=== PATIENT | male | born 1970 | race American Indian/Alaskan Native ===

== ENCOUNTER 2019-02-18 18:01 | Emergency (ER) | payer BC ==
[2019-02-18] MEDS ORDERED: ASPIRIN PO ONE (18:21)
--- NOTE | 2019-02-18 18:22 | Event Note ---
ED Screening Note Date of service: 02/18/19 Time: 18:19 ED Screening Note: This is a 48 y.o. M. that presents to the ER with left sided chest pain x 1 week. Denies radiating pain, palpitations, sob, n/v, or weakness This initial assessment/diagnostic orders/clinical plan/treatment(s) is/are s ubject to change based on patients health status, clinical progression and re- assessment by fellow clinical providers in the ED. Further treatment and workup at subsequent clinical providers discretion. Patient/guardian urged not to elope from the ED as their condition may be serious if not clinically assessed and managed. Initial orders include: Labs, EKG, & CXR
--- NOTE | 2019-02-18 18:49 | XRay Report ---
CHEST PA AND LATERAL VIEWS INDICATION: Chest Pain. COMPARISON: None. FINDINGS: Support devices: None. Heart: Within normal limits. Lungs/Pleura: No acute pulmonary or pleural findings. IMPRESSION: 1. No significant abnormality. Signer Name: Odell Avitia MD Signed: 02/18/2019 6:45 PM Workstation Name: [id number]
[2019-02-18 19:58] LABS: Basophils % (Auto) 0.6 % (0.0-1.8); Eosinophils # (Auto) 0.1 K/mm3 (0.0-0.4); Eosinophils % (Auto) 2.4 % (0.0-4.3); Hematocrit 46.7 % (35.5-45.6); Hemoglobin 15.9 gm/dl (11.8-15.2); Lymphocytes # (Auto) 2.4 K/mm3 (1.2-5.4); Lymphocytes % (Auto) 38.8 % (13.4-35.0); Mean Corpuscular HGB Conc 34 % (32-34); Mean Corpuscular Volume 94 fl (84-94); Monocytes # (Auto) 0.4 K/mm3 (0.0-0.8); Monocytes % (Auto) 6.8 % (0.0-7.3); Platelet Count 295 K/mm3 (140-440); Red Blood Count 4.98 M/mm3 (3.65-5.03); Red Cell Distribution Width 13.5 % (13.2-15.2)
[2019-02-18 20:16] LABS: BUN/Creatinine Ratio 18; Blood Urea Nitrogen 18 mg/dL (9-20); Calcium 9.3 mg/dL (8.4-10.2); Hemolysis Index 17
[2019-02-18 21:39] VITALS: BP 127/81
[2019-02-18] MEDS ORDERED: PEPCID PO ONE (21:43)
[2019-02-18] MEDS ORDERED: CARAFATE PO ONE (21:43)
--- NOTE | 2019-02-18 21:44 | Emergency Department Report ---
ED Chest Pain HPI - General Chief Complaint: Chest Pain Stated Complaint: CHEST PAIN Time Seen by Provider: 02/18/19 18:19 Source: patient, RN notes reviewed Mode of arrival: Ambulatory Limitations: No Limitations - History of Present Illness Initial Comments: This is a 48-year-old gentleman. This patient is not known to this provider previously. He does not have a local primary care doctor. He reports a history of left nephrectomy when he was a child. He presents to the ER with a complaint of nontraumatic chest pain. The chest pain is left-sided. It does not radiate anywhere. It is intermittent. It is present for over a week. There is no radiation to the back, arms or neck. There is no vomiting or diaphoresis. It is no recent aspirin consumption. Patient works as a dedicated local truck driver. He endorses multiple recent long road trips. There is no leg pain or leg swelling. He admits to recreational meth use a few days ago. He denies recent drug ingestion. Is no family history of heart disease that he is aware of. There is no history of DVT or pulmonary embolism that he is aware of. Apparently, patient came in today because he had a break in travel. MD Complaint: chest pain -: Gradual Onset: during rest Pain Location: left chest Pain Radiation: none Severity: mild Quality: aching Consistency: intermittent Improves With: nothing Worsens With: nothing Context: recent travel Aspirin use within the Past 7 Days: (0) No - Related Data Allergies Allergy/AdvReac Type Severity Reaction Status Date / Time No Known Allergies Allergy Unverified 02/18/19 18:06 Heart Score - HEART Score History: Slightly suspicious EKG: Non-specific Age: 45-65 Risk factors: 1-2 risk factors Troponin: < normal limit HEART Score: 3 - Critical Actions Critical Actions: 0-3 pts:0.9-1.7%risk of adverse cardiac event.Candidate for discharge ED Review of Systems ROS: Stated complaint: CHEST PAIN Other details as noted in HPI Constitutional: denies: fever Eyes: denies: eye discharge ENT: denies: congestion Respiratory: denies: cough, shortness of breath, SOB with exertion, SOB at rest, wheezing Cardiovascular: chest pain Gastrointestinal: denies: vomiting Musculoskeletal: denies: back pain Skin: denies: lesions Neurological: denies: weakness Psychiatric: denies: anxiety Hematological/Lymphatic: denies: easy bleeding ED Past Medical Hx - Past Medical History Previous Medical History?: Yes Hx Diabetes: Yes Additional medical history: One kidney - Surgical History Past Surgical History?: Yes Additional Surgical History: Left nephrectomy - Social History Smoking Status: Current Every Day Smoker Substance Use Type: Marijuana, Methamphetamines ED Physical Exam - General Limitations: No Limitations General appearance: alert, in no apparent distress - Head Head exam: Present: atraumatic, normocephalic - Eye Eye exam: Present: normal appearance, EOMI. Absent: nystagmus - ENT ENT exam: Present: normal exam, normal orophraynx, mucous membranes moist, normal external ear exam - Neck Neck exam: Present: normal inspection, full ROM. Absent: tenderness, menin gismus - Respiratory Respiratory exam: Present: normal lung sounds bilaterally. Absent: respiratory distress - Cardiovascular Cardiovascular Exam: Present: regular rate, normal rhythm, normal heart sounds. Absent: bradycardia, tachycardia, irregular rhythm, systolic murmur, diastolic murmur, rubs, gallop - GI/Abdominal GI/Abdominal exam: Present: soft. Absent: distended, tenderness, guarding, rebound, rigid, pulsatile mass - Rectal Rectal exam: Present: deferred - Extremities Exam Extremities exam: Present: normal inspection, full ROM, other (2+ pulses noted in the bilateral upper, lower extremities. There is no long bone tenderness. Musculoskeletal compartments are soft. The pelvis is stable.). Absent: pedal edema, joint swelling, calf tenderness - Back Exam Back exam: Present: normal inspection, full ROM. Absent: tenderness, CVA tenderness (R), CVA tenderness (L), paraspinal tenderness, vertebral tenderness - Neurological Exam Neurological exam: Present: alert, oriented X3, normal gait, other (there is no facial droop. The tongue is midline. Extraocular movements are intact bilaterally. Patient speaking in full complete sentences. Shoulder shrug is intact bilaterally. Hearing is grossly intact bilaterally. Visual acuity intact to finger counting and color perception at a close distance. 5/5 strength 4 extremities. Sensation intact to light touch in 4 extremities.). Absent: motor sensory deficit - Psychiatric Psychiatric exam: Present: normal affect, normal mood - Skin Skin exam: Present: warm, dry, intact, normal color. Absent: rash ED Course Vital Signs 02/18/19 02/18/19 02/18/19 18:06 20:54 21:01 Temperature 98.3 F Pulse Rate 85 70 81 Respiratory 16 15 12 Rate Blood Pressure 140/96 O2 Sat by Pulse 100 98 96 Oximetry 02/18/19 02/18/19 21:15 21:30 Temperature Pulse Rate 75 81 Respiratory 16 13 Rate Blood Pressure 134/86 127/81 O2 Sat by Pulse 97 97 Oximetry OLIVERIO score - Oliverio Score Age > 65: (0) No Aspirin use within the Past 7 Days: (0) No 3 or more CAD Risk Factors: (0) No 2 or more Angina events in past 24 hrs: (0) No Known CAD with more than 50% Stenosis: (0) No Elevated Cardiac Markers: (0) No ST Deviation Greater than 0.5mm: (0) No OLIVERIO Score: 0 ED Medical Decision Making - Lab Data Result diagrams: 02/18/19 19:06 02/18/19 19:06 Vital Signs 02/18/19 02/18/19 02/18/19 18:06 20:54 21:01 Temperature 98.3 F Pulse Rate 85 70 81 Respiratory 16 15 12 Rate Blood Pressure 140/96 O2 Sat by Pulse 100 98 96 Oximetry 02/18/19 02/18/19 21:15 21:30 Temperature Pulse Rate 75 81 Respiratory 16 13 Rate Blood Pressure 134/86 127/81 O2 Sat by Pulse 97 97 Oximetry Lab Results 02/18/19 02/18/19 02/18/19 Range/Units 19:06 19:06 21:43 WBC 6.3 (4.5-11.0) K/mm3 RBC 4.98 (3.65-5.03) M/mm3 Hgb 15.9 H (11.8-15.2) gm/dl Hct 46.7 H (35.5-45.6) % MCV 94 (84-94) fl MCH 32 (28-32) pg MCHC 34 (32-34) % RDW 13.5 (13.2-15.2) % Plt Count 295 (140-440) K/mm3 Lymph % (Auto) 38.8 H (13.4-35.0) % [place] % (Auto) 6.8 (0.0-7.3) % Eos % (Auto) 2.4 (0.0-4.3) % Baso % (Auto) 0.6 (0.0-1.8) % Lymph # 2.4 (1.2-5.4) K/mm3 [place] # 0.4 (0.0-0.8) K/mm3 Eos # 0.1 (0.0-0.4) K/mm3 Baso # 0.0 (0.0-0.1) K/mm3 Seg Neutrophils % 51.4 (40.0-70.0) % Seg Neutrophils # 3.2 (1.8-7.7) K/mm3 Sodium 138 (137-145) mmol/L Potassium 4.1 (3.6-5.0) mmol/L Chloride 103.0 (98-107) mmol/L Carbon Dioxide 18 L (22-30) mmol/L Anion Gap 21 mmol/L BUN 18 (9-20) mg/dL Creatinine 1.0 (0.8-1.5) mg/dL Estimated GFR > 60 ml/min BUN/Creatinine Ratio 18 % Glucose 114 H (75-100) mg/dL Calcium 9.3 (8.4-10.2) mg/dL Magnesium 2.20 (1.7-2.3) mg/dL Total Creatine Kinase 113 (55-170) units/L Troponin T < 0.010 (0.00-0.029) ng/mL 02/18/19 Range/Units Unknown WBC (4.5-11.0) K/mm3 RBC (3.65-5.03) M/mm3 Hgb (11.8-15.2) gm/dl Hct (35.5-45.6) % MCV (84-94) fl MCH (28-32) pg MCHC (32-34) % RDW (13.2-15.2) % Plt Count (140-440) K/mm3 Lymph % (Auto) (13.4-35.0) % [place] % (Auto) (0.0-7.3) % Eos % (Auto) (0.0-4.3) % Baso % (Auto) (0.0-1.8) % Lymph # (1.2-5.4) K/mm3 [place] # (0.0-0.8) K/mm3 Eos # (0.0-0.4) K/mm3 Baso # (0.0-0.1) K/mm3 Seg Neutrophils % (40.0-70.0) % Seg Neutrophils # (1.8-7.7) K/mm3 Sodium (137-145) mmol/L Potassium (3.6-5.0) mmol/L Chloride (98-107) mmol/L Carbon Dioxide (22-30) mmol/L Anion Gap mmol/L BUN (9-20) mg/dL Creatinine (0.8-1.5) mg/dL Estimated GFR ml/min BUN/Creatinine Ratio % Glucose (75-100) mg/dL Calcium (8.4-10.2) mg/dL Magnesium (1.7-2.3) mg/dL Total Creatine Kinase (55-170) units/L Troponin T < 0.010 (0.00-0.029) ng/mL - EKG Data -: EKG Interpreted by Ok EKG shows normal: sinus rhythm Rate: normal - EKG Data When compared to previous EKG there are: previous EKG unavailable 02/18/19 23:08 There is no prior EKG available for comparison. This is a sinus rhythm, 75 bpm, normal axis, QTC is prolonged, there is poor R-wave progression, there is borde rline high left ventricular voltage, EKG is abnormal, the EKG is not consistent with ST elevation myocardial infarction. - Radiology Data Radiology results: report reviewed, image reviewed X-ray of the chest is negative for acute disease - Medical Decision Making Differential diagnosis, including not limited to: GERD, gastritis, hiatal hernia, pneumonia, acute coronary syndrome, pulmonary embolism Assessment and plan: 48-year-old gentleman with 1 week of intermittent nonexertional atypical chest pain. Troponin negative 1, EKG abnormal, but without prior for comparison. Patient at low risk for major adverse cardiac event as per the heart scorer. Not tachycardic, not hypoxic, not tachypneic, perc negative Over, we recommended additional d-dimer, troponin, and repeat EKG to complete the patient's ER risk stratification. The patient is alert and oriented 3, clinically sober, and exhibits decision making capacity. He was counseled that we would need to obtain his additional tests to complete his risk stratification to exclude potentially lethal condition. Subsequently, the patient left. We called him up, but he did not answer his telephone. As per nursing report, voice mailbox is full and they were not able to leave a voicemail for return evaluation. Critical care attestation.: If time is entered above; I have spent that time in minutes in the direct care of this critically ill patient, excluding procedure time. ED Disposition Clinical Impression: History of chest pain Disposition: ELD Is pt being admited?: No Does the pt Need Aspirin: No Condition: Undetermined Referrals: PRIMARY CARE, [Primary Care Provider] - 3-5 Days
== END 2019-02-18 22:20 | disposition left against medical advice (07) ==
LOC: ED 18:01
DX: R07.89 Other chest pain (principal); E11.9 Type 2 diabetes mellitus without complications; F17.200 Nicotine dependence, unspecified, uncomplicated; F12.10 Cannabis abuse, uncomplicated; F15.10 Other stimulant abuse, uncomplicated; Z98.890 Other specified postprocedural states
CPT/HCPCS: 36415; 71046; 80048; 82550; 83735; 84484; 85025; 93005; 93010